=== PATIENT | female | born 1985 | race African-American/Black ===

== ENCOUNTER 2021-10-01 11:00 | Inpatient (IN) | payer OTHER ==
[2021-10-01] MEDS: ELECTROLYTE-148 SOLN 1,000 ML IV SCH (11:40)
[2021-10-01 12:30] VITALS: BMI 35.2
[2021-10-01] MEDS ORDERED: ONDANSETRON 4 MG/2 ML VIAL IVPUSH PRN ×3 (14:11→17:08)
[2021-10-01] MEDS ORDERED: morphine SULFATE/PF 1 MG/2 ML (2cc Syringe - QUVA) EP ONE (14:11)
[2021-10-01] MEDS ORDERED: ELECTROLYTE-148 SOLN 500 ML IV ONE (14:16)
[2021-10-01] MEDS ORDERED: CITRIC ACID/SODIUM CITRATE 30 ML UNIT-DOSE CUP PO ONE (14:16)
[2021-10-01] MEDS ORDERED: morphine SULFATE (PF) 1 MG/2 ML SYRINGE ONE (15:40)
[2021-10-01] MEDS ORDERED: ePHEDrine SULFATE 50 MG/1 ML AMPULE ONE (15:59)
[2021-10-01] MEDS ORDERED: OXYTOCIN 10 UNIT/ML 10ML MDV ONE ×2 (16:30→16:54)
[2021-10-01] MEDS ORDERED: KETOROLAC TROMETHAMINE 30 MG/1 ML VIAL ONE (16:30)
[2021-10-01] MEDS ORDERED: ceFAZolin SODIUM 1 GM VIAL ONE (16:30)
[2021-10-01] MEDS ORDERED: ONDANSETRON 4 MG/2 ML VIAL ONE (16:30)
[2021-10-01] MEDS ORDERED: ACETAMINOPHEN INJECTION 100 ML IVPB ONE (17:04)
[2021-10-01] MEDS ORDERED: METHYLERGONOVINE MALEATE 0.2 MG/1 ML AMP IM PRN ×2 (17:06→19:26)
[2021-10-01] MEDS ORDERED: morphine SULFATE (PF) 1 MG/2 ML SYRINGE IT ONE (17:08)
[2021-10-01] MEDS ORDERED: ACETAMINOPHEN 1000 MG/100 ML VIAL IVPB ONE (17:10)
[2021-10-01] MEDS: FERROUS SO4 325 MG TABLET (FP) PO SCH (17:29)
[2021-10-01] MEDS ORDERED: IBUPROFEN 800 MG/8 ML IJ IVPB ONE (19:14)
[2021-10-01] MEDS: IBUPROFEN 800 MG/8 ML IJ IVPB PRN (19:17)
[2021-10-01] MEDS: SIMETHICONE 80 MG TAB.CHEW (FP) PO PRN (20:53)
[2021-10-01] MEDS: oxyCODONE HCL 5 MG TABLET PO PRN (20:53)
[2021-10-02] MEDS: IBUPROFEN 800 MG/8 ML IJ IVPB PRN (01:57)
[2021-10-02] MEDS: SIMETHICONE 80 MG TAB.CHEW (FP) PO PRN ×5 (02:09→21:14)
[2021-10-02] MEDS: oxyCODONE HCL 5 MG TABLET PO PRN ×4 (06:51→21:13)
[2021-10-02 07:33] LABS: BASO % 0.3 % (0-2.0); EOS % 2.5 % (0-4.5); HEMATOCRIT 25.7 % (32.4-45.2); HEMOGLOBIN 8.6 GM/dL (10.7-15.3); LYMPH % 26.7 % (8-40); MCH 26.8 pg (25.7-33.7); MCHC 33.3 g/dl (32.0-36.0); MEAN CELL VOLUME 80.5 fl (80-96); MEAN PLT VOLUME 7.3 fl (7.5-11.1); NEUT % 58.5 % (42.8-82.8); PLATELET COUNT 230 10^3/uL (134-434); RBC 3.19 M/mm3 (3.60-5.2); RDW 16.5 % (11.6-15.6); WHITE BLOOD COUNT 6.3 K/mm3 (4.0-10.0)
[2021-10-02] MEDS: FERROUS SO4 325 MG TABLET (FP) PO SCH ×2 (09:31→17:19)
[2021-10-02] MEDS: ACETAMINOPHEN 325 MG TABLET (FP) PO PRN ×2 (09:34→17:18)
[2021-10-02] MEDS: PRENATAL VITAMINS W/ FOLIC ACID TABLET (FP) PO SCH (09:41)
[2021-10-02] MEDS: OXYTOCIN 20 UNITS in 0.9% NS 20 UNIT/1,000 ML INFUS.BAG IV SCH ×2 (11:55→18:29)
[2021-10-02] MEDS: IBUPROFEN 600 MG TABLET (FP) PO PRN ×2 (14:04→17:19)
[2021-10-02] MEDS: ELECTROLYTE-148 SOLN 1,000 ML IV SCH (15:30)
[2021-10-02] MEDS ORDERED: BISACODYL 10 MG SUPP.RECT RC PRN (17:07)
[2021-10-02] MEDS: SENNOSIDES/DOCUSATE COMBO (SENNA PLUS) TABLET (UD) PO PRN (21:12)
[2021-10-02] MEDS: ZOLPIDEM TARTRATE 5 MG TABLET PO PRN (21:13)
[2021-10-03] MEDS: IBUPROFEN 600 MG TABLET (FP) PO PRN ×3 (01:09→17:34)
[2021-10-03] MEDS: oxyCODONE HCL 5 MG TABLET PO PRN ×4 (05:05→21:13)
[2021-10-03] MEDS: ACETAMINOPHEN 325 MG TABLET (FP) PO PRN ×4 (05:32→21:13)
[2021-10-03] MEDS: SIMETHICONE 80 MG TAB.CHEW (FP) PO PRN ×5 (05:32→21:12)
[2021-10-03] MEDS: PRENATAL VITAMINS W/ FOLIC ACID TABLET (FP) PO SCH (09:12)
[2021-10-03] MEDS: FERROUS SO4 325 MG TABLET (FP) PO SCH ×2 (09:12→17:34)
[2021-10-03] MEDS: SENNOSIDES/DOCUSATE COMBO (SENNA PLUS) TABLET (UD) PO PRN (21:12)
[2021-10-03] MEDS: ZOLPIDEM TARTRATE 5 MG TABLET PO PRN (21:13)
[2021-10-04] MEDS: IBUPROFEN 600 MG TABLET (FP) PO PRN ×2 (01:25→14:38)
[2021-10-04] MEDS: SIMETHICONE 80 MG TAB.CHEW (FP) PO PRN ×5 (01:25→20:45)
[2021-10-04] MEDS: oxyCODONE HCL 5 MG TABLET PO PRN ×4 (06:18→20:46)
[2021-10-04] MEDS: ACETAMINOPHEN 325 MG TABLET (FP) PO PRN ×4 (06:19→20:45)
[2021-10-04] MEDS: PRENATAL VITAMINS W/ FOLIC ACID TABLET (FP) PO SCH (09:03)
[2021-10-04] MEDS: FERROUS SO4 325 MG TABLET (FP) PO SCH ×2 (09:03→17:46)
[2021-10-04] MEDS ORDERED: oxyCODONE HCL 5 MG TABLET PO PRN (20:33)
[2021-10-04] MEDS: SENNOSIDES/DOCUSATE COMBO (SENNA PLUS) TABLET (UD) PO PRN (20:45)
[2021-10-04 22:12] VITALS: TEMP 98.4
[2021-10-05] MEDS: ZOLPIDEM TARTRATE 5 MG TABLET PO PRN (01:23)
[2021-10-05] MEDS: ACETAMINOPHEN 325 MG TABLET (FP) PO PRN ×2 (05:07→09:00)
[2021-10-05] MEDS: SIMETHICONE 80 MG TAB.CHEW (FP) PO PRN (05:07)
[2021-10-05 08:40] VITALS: BP 123/78; PULSE 83
[2021-10-05] MEDS: oxyCODONE HCL 5 MG TABLET PO PRN (08:58)
[2021-10-05] MEDS: FERROUS SO4 325 MG TABLET (FP) PO SCH (08:58)
[2021-10-05] MEDS: PRENATAL VITAMINS W/ FOLIC ACID TABLET (FP) PO SCH (09:00)
[2021-10-05] MEDS ORDERED: BISACODYL 10 MG SUPP.RECT RC PRN (20:33)
== END 2021-10-05 12:15 | disposition home or self-care (01) | DRG 788 ==
LOC: JLDR 11:00 → J3W 20:28
PROVIDERS: ADMIT Obstetrics & Gynecology; ATTEND Obstetrics & Gynecology
PROC: 10D00Z1 Extraction of Products of Conception, Low, Open Approach (ICD-10-PCS; principal; 2021-10-01)
DX: O82 Encounter for cesarean delivery without indication (principal); O69.89X0 Labor and delivery complicated by other cord complications, not applicable or unspecified; Z87.59 Personal history of other complications of pregnancy, childbirth and the puerperium; Z3A.39 39 weeks gestation of pregnancy; Z37.0 Single live birth
CPT/HCPCS: 36415; 85025; 85461; 86999; 88307-TC; J0131

== ENCOUNTER 2021-12-07 07:14 | Emergency (ER) | payer OTHER ==
[2021-12-07 08:18] VITALS: BP 100/65; PULSE 80; TEMP 98.3; BMI 32.8
[2021-12-07] MEDS ORDERED: SODIUM CHLORIDE 0.9% 1000 ML INFUS.BAG IV ONE (09:11)
[2021-12-07] MEDS ORDERED: ACETAMINOPHEN 1000 MG/100 ML BAG IVPB ONE (09:11)
[2021-12-07] MEDS ORDERED: ACETAMINOPHEN INJECTION 100 ML IVPB ONE (09:23)
[2021-12-07 09:30] LABS: BASO % 0.5 % (0-2.0); EOS % 2.6 % (0-4.5); HEMATOCRIT 37.1 % (32.4-45.2); HEMOGLOBIN 11.9 GM/dL (10.7-15.3); MCH 25.2 pg (25.7-33.7); MEAN CELL VOLUME 78.7 fl (80-96); MEAN PLT VOLUME 7.7 fl (7.5-11.1); MONO % 6.1 % (3.8-10.2); NEUT % 47.8 % (42.8-82.8); PLATELET COUNT 390 10^3/uL (134-434); RBC 4.71 M/mm3 (3.60-5.2); RDW 16.9 % (11.6-15.6); WHITE BLOOD COUNT 4.1 K/mm3 (4.0-10.0)
[2021-12-07 09:51] LABS: CHLORIDE 107 mmol/L (98-107); SODIUM 138 mmol/L (136-145)
[2021-12-07 09:56] LABS: ALBUMIN 4.1 g/dl (3.4-5.0); BLOOD UREA NITROGEN 7.5 mg/dL (7-18); CO2 27 mmol/L (21-32); GLUCOSE,RANDOM 85 mg/dL (74-106)
[2021-12-07 09:57] LABS: LIPASE 80 U/L (73-393)
[2021-12-07 09:58] LABS: CREATININE 0.9 mg/dL (0.55-1.3)
[2021-12-07 09:59] LABS: SGOT/AST 66 U/L (15-37)
[2021-12-07 10:00] LABS: BILIRUBIN,TOTAL 0.4 mg/dL (0.2-1); TOT PROT 8.7 g/dl (6.4-8.2)
[2021-12-07 10:01] LABS: ALK PHOS 71 U/L (45-117)
[2021-12-07 10:31] LABS: ANION GAP 4 MMOL/L (8-16); SGPT/ALT 34 U/L (13-61)
[2021-12-07 13:05] LABS: EPI CELLS >36 /uL (0-25.1); HYALINE CASTS 5 /uL (0-3.1); PH,URINE 5.5 (5.0-8.0); URINE APPEARANCE TURBID; URINE BACTERIA >9,000 /uL (0-1359); URINE BILIRUBIN NEGATIVE (NEGATIVE); URINE COLOR YELLOW; URINE GLUCOSE (UA) NEGATIVE (NEGATIVE); URINE KETONE NEGATIVE (NEGATIVE); URINE LEUK ESTERASE 2+ (NEGATIVE); URINE NITRITE NEGATIVE (NEGATIVE); URINE PROTEIN NEGATIVE (NEGATIVE); URINE RBC 10 /uL (0-23.9); URINE UROBILINOGEN 0.2 mg/dL (0.2-1.0); URINE WBC 326 /uL (0-25.8)
== END 2021-12-07 14:11 | disposition left against medical advice (07) ==
LOC: SUPCPDRO 07:14 → JER 07:14
DX: R10.11 Right upper quadrant pain (principal)
CPT/HCPCS: 36415; 76705-TC; 80053; 81003; 83690; 85025; 87086; 87186; 87804; 99285-25; C9803-CS; U0003; U0005